=== PATIENT | male | born 1985 | race American Indian/Alaskan Native ===

== ENCOUNTER 2016-09-26 08:45 | Emergency (ER) | payer SELFPAY ==
[2016-09-26 09:15] VITALS: BP 129/91
[2016-09-26] MEDS ORDERED: TRIPLE ANTIBIOTIC TP ONE (11:45)
[2016-09-26] MEDS ORDERED: BOOSTRIX IM ONE (11:45)
[2016-09-26] MEDS ORDERED: XYLOCAINE 1% MPF 5 mL INFILTRATI ONE ×2 (11:46→14:00)
[2016-09-26] MEDS ORDERED: TORADOL IM ONE (11:47)
--- NOTE | 2016-09-26 13:49 | XRay Report ---
LEFT TOES: History: Pain. The bony architecture is intact. Bony alignment is normal. No soft tissue abnormalities are seen. The joint spaces appear preserved. IMPRESSION: Normal left toes.
--- NOTE | 2016-09-26 14:30 | Emergency Department Report ---
ED Laceration HPI - HPI Chief Complaint: Laceration/Recheck/Suture Stated Complaint: LAC TO LEFT BIG TOE Time Seen by Provider: 09/26/16 11:11 Occurred When: Today Location: Lower Extremity Severity: mild Tetanus Status: Not up to Date Laceration Symptoms: No Foreign Body Sensation, No Numbness, No Weakness, No Pain Other History: Patient presents with left great toe laceration, and right great toe abrasion. He states he went to sleep last night after taken his risperidone at 12:00 midnight. He woke up this morning at 4 AM with the injuries. He denies knowing how they occurred. He does have a history of psychotic episode and he currently lives in a snf. He denies being attacked. ED Review of Systems ROS: Stated complaint: LAC TO LEFT BIG TOE Other details as noted in HPI Constitutional: denies: chills, fever Respiratory: denies: cough, shortness of breath, wheezing Cardiovascular: denies: chest pain, palpitations Musculoskeletal: denies: back pain, joint swelling, arthralgia Skin: as per HPI Neurological: denies: headache, weakness, paresthesias ED Past Medical Hx - Medications Home Medications: Home Medications Medication Instructions Recorded Confirmed Last Taken Type Sulfamethoxazole/Trimethoprim 1 each PO BID #20 tablet 09/26/16 Unknown Rx [Bactrim DS TAB] Laceration Physical Exam - Exam General: Vital signs noted. No distress. Alert and acting appropriately. Patient presents with irregular laceration to distal part of great toe on left foot. It is approximately 2 cm and very superficial. There is an area of discoloration of yellowish-white to the right of the laceration. Wound Length (cm): 2 Laceration Location: Lower Extremity Laceration Exam: Yes Normal Distal CMS, No Foreign Body, No Exposed Tendon, Vessel, or Nerve, No Tendon Injury ED Course Vital Signs 09/26/16 09:12 Temperature 98.4 F Pulse Rate 55 L Respiratory 18 Rate Blood Pressure 129/91 O2 Sat by Pulse 100 Oximetry ED Medical Decision Making - Medical Decision Making Patient presents with laceration to left great toe. Dr. Muñoz evaluated the patient and determined that there was no infection present and that the laceration was so superficial that it does not require sutures. I will place patient on Bactrim twice a day. I will inform him him he must keep the wounds clean and dry and covered until healed. And he will need to return to the ED if swelling, redness, bruising, pain. - Differential Diagnosis abscess, laceration Critical Care Time: No Critical care attestation.: If time is entered above; I have spent that time in minutes in the direct care of this critically ill patient, excluding procedure time. ED Disposition Clinical Impression: Laceration, Abrasion Disposition: DISCHARGED TO HOME OR SELFCARE Is pt being admited?: No Does the pt Need Aspirin: No Condition: Stable Instructions: Laceration (ED), Abrasion (ED) Additional Instructions: It is very important that you keep bilateral great toe lesions clean, dry, and covered with Vaseline or Neosporin until they have healed. Return to the ED if you notice redness, swelling, bruising, pain. Prescriptions: Sulfamethoxazole/Trimethoprim [Bactrim DS TAB] 1 each PO BID #20 tablet Forms: Work/School Release Form(ED) Time of Disposition: 14:32
== END 2016-09-26 14:52 | disposition home or self-care (01) ==
LOC: ED 08:45
DX: S91.112A Laceration without foreign body of left great toe without damage to nail, initial encounter (principal); S90.412A Abrasion, left great toe, initial encounter; X58.XXXA Exposure to other specified factors, initial encounter; Y93.89 Activity, other specified; Y99.9 Unspecified external cause status; Y92.89 Other specified places as the place of occurrence of the external cause
CPT/HCPCS: 73660; 90471; 90715; 96372; 99283; J1885; A6250